=== PATIENT | female | born 1975 | race Caucasian/White ===

== ENCOUNTER 2018-03-12 13:29 | Emergency (ER) | payer SELFPAY ==
[2018-03-12 14:08] LABS: Bilirubin Negative (Negative); Blood, Urine Trace (Negative); Glucose, Urine (Dipstick) Negative (Negative); Leukocyte Trace (Negative); Nitrite Negative (Negative); Protein, Urine (Dipstick) Negative (Neg-Trace); Specific Gravity, Urine 1.015 (1.005-1.030); Urobilinogen 0.2 mg/dL (0.2-1.0); pH, Urine 7.5 (5.0-9.0)
[2018-03-12 14:11] LABS: Clarity CLEAR (Clear); Pregnancy Test - Urine (BHCG) Negative (Negative); Pregu Control Background? CLEAR/WHITE (CLR/WHITE); Pregu Control Bar Appear? YES (CONTROL BAR); Specific Gravity 1.015 (1.002-1.036)
[2018-03-12 14:14] LABS: Bacteria/HPF 3+ HPF (None Seen); Hyaline Casts/LPF NONE SEEN LPF (0-3 Hyaline); RBC/HPF 0-3 HPF (0-3); Squamous Epithelial 0-3 HPF (0-3); Yeast-All Forms Rare HPF (None Seen)
[2018-03-12] MEDS ORDERED: cefTRIAXone\\ROCEPHIN 1 GM VIAL ONE (15:59)
[2018-03-12] MEDS ORDERED: Lidocaine 1% PF 5 ML VIAL ONE (15:59)
== END 2018-03-12 16:30 | disposition home or self-care (01) ==
LOC: ERS 13:29
DX: N39.0 Urinary tract infection, site not specified (principal); I10 Essential (primary) hypertension; F31.9 Bipolar disorder, unspecified; F17.210 Nicotine dependence, cigarettes, uncomplicated
CPT/HCPCS: 81003; 81015; 81025; 87077; 87086; 87186; 96372; J0696; J2001

== ENCOUNTER 2019-12-26 07:30 | Emergency (ER) | payer SELFPAY ==
[2019-12-26] MEDS ORDERED: Proparacaine 0.5% Opth 15 ML BOT ONE (07:45)
[2019-12-26] MEDS ORDERED: Fluorescein Opthalmic Strip ONE (07:45)
[2019-12-26] MEDS ORDERED: cefTRIAXone\\ROCEPHIN 250 MG VIAL ONE (08:03)
[2019-12-26] MEDS ORDERED: Lidocaine 1% PF 5 ML VIAL ONE ×2 (08:03→08:09)
[2019-12-26] MEDS ORDERED: Azithromycin 250 MG TAB ONE ×2 (08:03→08:07)
[2019-12-26 08:51] LABS: Bacteria/HPF None Seen HPF (None Seen); Bilirubin Negative (Negative); Blood, Urine 1+ (Negative); Clarity Clear (Clear); Glucose, Urine (Dipstick) Normal (Negative); Leukocyte Negative Leu/uL (Negative); Nitrite Negative (Negative); Protein, Urine (Dipstick) Negative (Neg-Trace); RBC/HPF 0-3 HPF (0-3); Urobilinogen Normal mg/dL (Less than 2); WBC/HPF 0-3 HPF (0-3)
[2019-12-26 08:52] LABS: Pregnancy Test - Urine (BHCG) Negative (Negative); Pregu Control Background? CLEAR/WHITE (CLR/WHITE); Pregu Control Bar Appear? YES (CONTROL BAR); Specific Gravity 1.016 (1.002-1.036)
[2019-12-27 01:31] LABS: Chlamydia by PCR Not Detected (NotDetected); GC by PCR Not Detected (NotDetected)
== END 2019-12-26 09:10 | disposition home or self-care (01) ==
LOC: ERS 07:30
DX: H10.9 Unspecified conjunctivitis (principal); N89.8 Other specified noninflammatory disorders of vagina; I10 Essential (primary) hypertension; F31.9 Bipolar disorder, unspecified; F17.210 Nicotine dependence, cigarettes, uncomplicated
CPT/HCPCS: 81003; 81015; 81025; 87480; 87491; 87510; 87591; 87660; 96372; 99283; J0696; J2001

== ENCOUNTER 2024-03-07 03:55 | Emergency (ER) | payer SELFPAY ==
[2024-03-07] MEDS ORDERED: Ketorolac Tromethamine 30 MG (1 mL) VIAL ONE (04:17)
[2024-03-07 04:39] LABS: Bacteria/HPF None Seen HPF (None Seen); Bilirubin Negative (Negative); Blood, Urine 1+ (Negative); CAUTI Indications for Culture Pelvic or flank pain; Clarity Turbid (Clear); Glucose, Urine (Dipstick) Normal (Negative); Ketone, Urine Negative (Negative); Leukocyte 250 Leu/uL (Negative); Nitrite Negative (Negative); Protein, Urine (Dipstick) Negative (Neg-Trace); Specific Gravity, Urine 1.018 (1.002-1.036); Urobilinogen Normal mg/dL (Less than 2)
[2024-03-07 04:41] LABS: Pregnancy Test - Urine (BHCG) Negative (Negative); Pregu Control Background? CLEAR/WHITE (CLR/WHITE); Pregu Control Bar Appear? YES (CONTROL BAR); Specific Gravity 1.018 (1.002-1.036); Urine Culture Reflex Yes Yes
[2024-03-07] MEDS ORDERED: Cephalexin 250 MG CAP ONE (05:04)
== END 2024-03-07 06:20 | disposition home or self-care (01) ==
LOC: ERS 03:55
DX: N39.0 Urinary tract infection, site not specified (principal); D26.9 Other benign neoplasm of uterus, unspecified; I10 Essential (primary) hypertension; F17.210 Nicotine dependence, cigarettes, uncomplicated; Z55.6 Problems related to health literacy
CPT/HCPCS: 76856; 81001; 81025; 87086; 96372; J1885

== ENCOUNTER 2025-09-14 01:58 | Emergency (ER) | payer OTHER ==
[2025-09-14] MEDS ORDERED: Cyclobenzaprine 10 MG TAB ONE (04:08)
[2025-09-14] MEDS ORDERED: Dexamethasone 10 MG/ML VIAL ONE (04:08)
[2025-09-14] MEDS ORDERED: Ketorolac Tromethamine 30 MG (1 mL) VIAL ONE (04:09)
== END 2025-09-14 04:35 | disposition home or self-care (01) ==
LOC: ERS 01:58
DX: M25.511 Pain in right shoulder (principal); M62.838 Other muscle spasm; I10 Essential (primary) hypertension; F17.210 Nicotine dependence, cigarettes, uncomplicated
CPT/HCPCS: 96372; 99282; J1100; J1885